=== PATIENT | male | born 1950 | race Caucasian/White ===

== ENCOUNTER 2024-03-29 08:00 | Emergency (ER) | payer MEDICARE, SELFPAY ==
[2024-03-29] VITALS (11 sets, daily range): BP systolic 112–148; BP diastolic 80–107; PULSE 63–147; RESP 13–17; TEMP 36.4–36.6; O2SAT 96–100
--- NOTE | ~2024-03-29 | XR_ITS ---
XR chest 2V DATE: 03/29/2024 08:23 INDICATION: Palpitations. History of atrial fibrillation. TECHNIQUE: PA and lateral views COMPARISON: None FINDINGS: There is bilateral hyperinflation. No pulmonary infiltrate or consolidation, pulmonary vas cular congestion or pleural effusion or pneumothorax. There is cardiomegaly. There is aortic calcification, ectasia and tortuosity. No hilar or mediastin al enlargement. There is degenerative spurring of the thoracic spine. IMPRESSION: Bilateral hyperinflation, suggesting COPD Cardiomegaly Aortic calcification, ectasia and tortuosity No active pulmonary disease Reviewed, dictated and finalized at location [facility]. [employer] [employer]
--- NOTE | 2024-03-29 08:03 | ECG_ITS ---
Test Date: 2024-03-29 08:11:04 Measurements Intervals [place] Rate: 147 P: 0 SC: 0 QRS: 14 QRSD: 88 T: -7 QT: 305 QTc: 478 Interpretive Statements ATRIAL FIBRILLATION WITH RAPID VENTRICULAR RESPONSE CONSIDER ANTEROSEPTAL INFARCT, AGE INDETERMINATE BORDERLINE ST-T WAVE ABNORMALITY- INFERIOR LEADS ABNORMAL ECG No previous ECG available for comparison Electronically Signed On 03-29-2024 08:24:03 FLORIST by Aurelio Hudson D.O.
[2024-03-29 08:30] LABS: Basophils Absolute Auto 0.1 K/mm3 (0.0-0.1); Basophils Percent Auto 0.9 % (0.2-1.2); Eosinophils Absolute Auto 0.2 K/mm3 (0-0.3); Eosinophils Percent Auto 2.5 % (0-4.4); Hematocrit 50.4 % (42.0-52.0); Hemoglobin 16.7 g/dL (14.0-18.0); Immature Granulocyte Absolute 0.03 K/mm3 (0.00-0.031); Immature Granulocyte Percent A 0.3 % (0-0.5); Lymphocytes Absolute Auto 3.32 K/mm3 (0.9-3.2); Lymphocytes Percent Auto 36.6 % (18.3-44.2); Mean Corpuscular HGB Conc 33.1 g/dl (32-36); Mean Corpuscular Hemoglobin 31.6 pg (26-34); Mean Corpuscular Volume 95.3 fl (80-100); Mean Platelet Volume 10.3 fl (7.4-10.4); Monocytes Absolute Auto 0.9 K/mm3 (0.1-0.6); Monocytes Percent Auto 10.4 % (2.6-8.5); Neutrophils Absolute Auto 4.5 K/mm3 (1.3-6.7); Neutrophils Percent Auto 49.3 % (45.5-73.1); Platelet Count Result 228 k/mm3 (150-375); Red Blood Count 5.29 M/mm3 (4.6-6.20); Red Cell Distribution Width 13.5 % (11.5-14.5); White Blood Count 9.1 K/mm3 (4.5-10.0)
[2024-03-29 08:37] LABS: Prothrombin Time 13.3 Seconds (11.1-14.7)
[2024-03-29 08:38] LABS: Partial Thromboplastin Time 38.9 Seconds (22.3-36.8)
[2024-03-29 08:54] LABS: Alanine Aminotransferase 45 U/L (6-50); Albumin Level 4.2 g/dL (3.5-5.1); Alkaline Phosphatase 112 U/L (38-126); Anion Gap 7 mmol/L (4-12); Aspartate Amino Transferase 43 U/L (17-59); Bilirubin,Total 0.9 mg/dL (0.2-1.3); Blood Urea Nitrogen 20 mg/dL (9-20); Carbon Dioxide 28 mmol/L (22-30); Chloride 105 mmol/L (98-107); Estimated CRCL calculation 79 ml/min; Estimated Glomerular Filt Rate > 60; Glucose 102 mg/dL (65-110); Lipase 76 U/L (23-300); Potassium 3.8 mmol/L (3.4-5.0); Sodium 140 mmol/L (137-145)
--- NOTE | 2024-03-29 08:58 | ECG_ITS ---
Test Date: 2024-03-29 09:02:31 Measurements Intervals [place] Rate: 81 P: 0 ID: 0 QRS: -18 QRSD: 87 T: -11 QT: 386 QTc: 450 Interpretive Statements SINUS RHYTHM WITH VENTRICULAR PREMATURE COMPLEX AND FREQUENT ATRIAL PREMATURE COMPLEXES BORDERLINE R WAVE PROGRESSION, ANTERIOR LEADS BORDERLINE ST-T WAVE ABNORMALITY- INFERIOR LEADS BASELINE ARTIFACT- I, II, III, AVR, AVLL, AVF, V1-V2 ABNORMAL ECG Compared to ECG 03/29/2024 08:11:04 ATRIAL FIBRILLATION NO LONGER PRESENT Electronically Signed On 03-29-2024 09:08:01 TELEPHONE INTERVIEWER by Aurelio Hudson D.O.
--- NOTE | 2024-03-29 08:59 | ED_ITS ---
HPI - General Adult General Chief complaint: Arrhythmia/Palpitations Stated complaint: I'm in afib hx afib Time Seen by Provider: 03/29/24 08:11 History of Present Illness HPI narrative: this is a 73-year-old male with history of atrial fibrillation presenting for atrial fibrillation. Patient says he has been going in and of AFib for many years. He has had multiple ablations and cardioversions. Cardioversions are typically very effective form. He has been at [employer] which he takes religiously. He developed palpitations yesterday and took his home propafenone without relief. He came to the ED today for cardioversion. No other symptoms. denies any chest pain Related Data Allergies Allergy/AdvReac Type Severity Reaction Status Date / Time amiodarone Allergy Hives Verified 03/29/24 08:02 dronedarone Allergy Hives Verified 03/29/24 08:02 flecainide Allergy Hives Verified 03/29/24 08:02 Quinolones Allergy Unknown Verified 03/29/24 08:02 Exam Narrative: APPEARANCE: No apparent distress. Head: atraumatic. EYES: EOMI, NOSE: Atraumatic NECK: Trachea midline RESPIRATORY: No increased rate of breathing, CTAB CARDIOVASCULAR: tachycardic, irregularly irregular, +2 pulses in all extremities ABDOMINAL: Non-distended MUSCULOSKELETAl: No obvious deformities NEURO: Alert. Moving 4/4 extremities SKIN:: Warm, dry. Normal color PSYCHIATRIC: Normal affect Course Vital Signs Vital signs: Vital Signs Temperature 97.6 F 03/29/24 08:05 Pulse Rate 127 H 03/29/24 08:05 Respiratory Rate 16 03/29/24 08:05 Blood Pressure 134/107 H 03/29/24 08:05 Pulse Oximetry 97 03/29/24 08:05 Oxygen Delivery Room Air 03/29/24 08:05 Temperature 97.6 F 03/29/24 08:05 Pulse Rate 135 H 03/29/24 08:11 Respiratory Rate 16 03/29/24 08:05 Blood Pressure 134/107 H 03/29/24 08:05 Pulse Oximetry 97 03/29/24 08:05 Oxygen Delivery Room Air 03/29/24 08:05 Procedures Procedural Sedation Procedural Sedation #1: Procedural Sedation Date: 03/29/24 Presedation Evaluation: See physical exam Procedure: Cardioversion Provider Performed: sedation and procedure Informed Consent Obtained: yes Equipment in Room: bag and mask, capnography, quality assurance monitor final, crash cart, oxygen, pulse oximeter and suction Plan for Sedation: moderate sedation ASA Class: I Mallampati Classification: class I NPO Status: unknown Explanation to Patient/Family: Risk/Benefits/Alternatives and Pt/Family agreed with plan Pt. Educated on Procedural Sedation: Yes Re-evaluated immediately prior: Yes IV Etomidate dose (mg): 7.7 Patient Tolerated Procedure: well Complications: none Medical Decision Making MDM Narrative Medical decision making narrative: -Course: 73-year-old male history of paroxysmal AFib presenting in atrial fibrillation. He has been on Eliquis for quite some time. He is a good candidate for cardioversion. This was discussed with patient's family and that is their preferred method of treatment. Patient was sedated with etomidate and cardioverted at 50 joules with conversion to normal sinus rhythm. Patient was monitored until back to baseline and discharged with cardiology follow-up. Given return precautions. Vital Signs Vital Signs: Vital Signs Temperature 97.6 F 03/29/24 08:05 Pulse Rate 127 H 03/29/24 08:05 Respiratory Rate 16 03/29/24 08:05 Blood Pressure 134/107 H 03/29/24 08:05 Pulse Oximetry 97 03/29/24 08:05 Oxygen Delivery Room Air 03/29/24 08:05 Temperature 97.6 F 03/29/24 08:05 Pulse Rate 135 H 03/29/24 08:11 Respiratory Rate 16 03/29/24 08:05 Blood Pressure 134/107 H 03/29/24 08:05 Pulse Oximetry 97 03/29/24 08:05 Oxygen Delivery Room Air 03/29/24 08:05 Lab Data 03/29/24 08:17 03/29/24 08:17 Labs: Lab Results 03/29/24 Range/Units 08:17 WBC 9.1 (4.5-10.0) K/mm3 RBC 5.29 (4.6-6.20) M/mm3 Hgb 16.7 (14.0-18.0) g/dL Hct 50.4 (42.0-52.0) % MCV 95.3 (80-100) fl MCH 31.6 (26-34) pg MCHC 33.1 (32-36) g/dl RDW 13.5 (11.5-14.5) % Plt Count 228 (150-375) k/mm3 MPV 10.3 (7.4-10.4) fl Immature Gran % (Auto) 0.3 (0-0.5) % Neut % (Auto) 49.3 (45.5-73.1) % Lymph % (Auto) 36.6 (18.3-44.2) % [place] % (Auto) 10.4 H (2.6-8.5) % Eos % (Auto) 2.5 (0-4.4) % Baso % (Auto) 0.9 (0.2-1.2) % Lymph # (Auto) 3.32 H (0.9-3.2) K/mm3 [place] # (Auto) 0.9 H (0.1-0.6) K/mm3 Eos # (Auto) 0.2 (0-0.3) K/mm3 Baso # (Auto) 0.1 (0.0-0.1) K/mm3 Abs Immat Gran (auto) 0.03 (0.00-0.031) K/mm3 Absolute Neuts (auto) 4.5 (1.3-6.7) K/mm3 Absolute Nucleated RBC 0.000 (0.0-0.012) K/mm3 Nucleated RBC % 0.0 (0.0-0.2) % PT 13.3 (11.1-14.7) Seconds INR 1.0 APTT 38.9 H (22.3-36.8) Seconds Sodium 140 (137-145) mmol/L Potassium 3.8 (3.4-5.0) mmol/L Chloride 105 (98-107) mmol/L Carbon Dioxide 28 (22-30) mmol/L Anion Gap 7 (4-12) mmol/L BUN 20 (9-20) mg/dL Creatinine 0.80 (0.7-1.3) mg/dL Estim Creat Clear Calc 79 ml/min Estimated GFR > 60 (59 - ) Glucose 102 (65-110) mg/dL Calcium 9.0 (8.4-10.2) mg/dL Total Bilirubin 0.9 (0.2-1.3) mg/dL AST 43 (17-59) U/L ALT 45 (6-50) U/L Alkaline Phosphatase 112 (38-126) U/L Troponin I Pending Total Protein 7.0 (6.3-8.2) g/dL Albumin 4.2 (3.5-5.1) g/dL Lipase 76 (23-300) U/L Discharge Plan Discharge Clinical Impression: Atrial fibrillation Patient Disposition: Home, Self-Care Condition: Stable Instructions: Antibiotic Form, A-fib (Atrial Fibrillation) (ED) Additional Instructions: You were seen in the emergency department for atrial fibrillation. Cardioversion was performed you now back in a normal sinus rhythm. Please follow-up with your public relations assistant for further management. He can return any time if you develop chest pain difficulty breathing or if you go back into atrial fibrillation. Follow-up/Referrals: PHYSICIAN NOT ON STAFF,NONSTAFF [Non-Staff] -
[2024-03-29 09:06] LABS: Troponin I < 0.012 ng/mL (0.000-0.034)
== END 2024-03-29 09:58 | disposition home or self-care (01) ==
PROVIDERS: Emergency Provider Emergency Medicine
DX: I48.91 Unspecified atrial fibrillation (principal)
CPT/HCPCS: 36415; 71046; 80053; 83690; 84484; 85025; 85610; 85730; 92960; 93005; 99285